=== PATIENT | male | born 2000 | race African-American/Black ===

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

== ENCOUNTER 2020-01-11 22:36 | Emergency (ER) | payer OTHER ==
[~2020-01-11] VITALS: Ht 188 cm; Wt 130.9 kg
[~2020-01-11 22:36] MED LIST changes: +CYCL10TA2 PO; +NAPR-514 PO
[2020-01-11 22:42] VITALS: BP 151/67
[2020-01-11] MEDS ORDERED: TRAM-48 PO (23:10)
--- NOTE | 2020-01-11 23:11 | PHYS DOC ---
Past Medical History Past Medical History: No Pertinent History Additional Past Medical Histor: eczema Past Surgical History: No Surgical History Smoking Status: Never Smoker Alcohol Use: None Drug Use: None General Adult EDM: Chief Complaint: LOWER EXT PAIN HPI: HPI: Patient is a 19 year old male with no past medical history currently on no medications presents for evaluation of bilateral shins after an accident at work. Patient injured bilateral shins on a metal bar while working at [employer]. Patient has 5 out of 10 pain located bilateral merida. Is associated swelling bilateral left greater than right. Patient is able to ambulate and bear weight on lower extremities. There are no other injuries noted. Review of Systems: Review of Systems: Constitutional: Denies fever or chills. [] Eyes: Denies change in visual acuity. [] HENT: Denies nasal congestion or sore throat. [] Respiratory: Denies cough or shortness of breath. [] Cardiovascular: Denies chest pain or edema. [] GI: Denies abdominal pain, nausea, vomiting, bloody stools or diarrhea. [] : Denies dysuria. [] Musculoskeletal: Positive bilateral extremity pain Integument: Denies rash. [Positive contusion positive swelling] Neurologic: Denies headache, focal weakness or sensory changes. [] Endocrine: Denies polyuria or polydipsia. [] Lymphatic: Denies swollen glands. [] Psychiatric: Denies depression or anxiety. [] Heart Score: Risk Factors: Risk Factors: DM, Current or recent (<one month) smoker, HTN, HLP, family history of CAD, obesity. Risk Scores: Score 0 - 3: 2.5% MACE over next 6 weeks - Discharge Home Score 4 - 6: 20.3% MACE over next 6 weeks - Admit for Clinical Observation Score 7 - 10: 72.7% MACE over next 6 weeks - Early Invasive Strategies Allergies: Allergies: Allergies Coded Allergies Type Severity Reaction Last Updated Verified No Known Drug Allergies 05/01/14 No Physical Exam: PE: Constitutional: Well developed, well nourished, no acute distress, non-toxic appearance. [] HENT: Normocephalic, atraumatic, bilateral external ears normal, oropharynx mois t, no oral exudates, nose normal. [] Eyes: PERRLA, EOMI, conjunctiva normal, no discharge. [] Neck: Normal range of motion, no tenderness, supple, no stridor. [] Cardiovascular:Heart rate regular rhythm, no murmur [] Lungs & Thorax: Bilateral breath sounds clear to auscultation [] Abdomen: Bowel sounds normal, soft, no tenderness, no masses, no pulsatile masses. [] Skin: Warm, dry, no erythema, no rash. [] Back: No tenderness, no CVA tenderness. [] Extremities: Tenderness anterior shins bilateral. Bilateral abrasions bilateral swelling left greater than right no active bleeding Neurologic: Alert and oriented X 3, normal motor function, normal sensory function, no focal deficits noted. [] Psychologic: Affect normal, judgement normal, mood normal. [] Current Patient Data: Vital Signs: Vital Signs Date Time Temp Pulse Resp B/P (MAP) Pulse Ox O2 Delivery O2 Flow Rate FiO2 01/11/20 22:48 97.2 83 151/67 (95) 100 97.2 01/11/20 22:42 18 Room Air EKG: EKG: [] Radiology/Procedures: Radiology/Procedures: [] Course & Med Decision Making: Course & Med Decision Making Pertinent Labs and Imaging studies reviewed. (See chart for details) [] Based upon history of present illness and physical exam no emergent radiologic imaging ordered. Patient is able to ambulate and bear weight I do not suspect a fracture dislocation of patient's bilateral tib-fib's. Patient instructed to take [id number] Tylenol or ibuprofen as needed. Will prescribe patient Ultram for breakthrough pain. Patient instructed to rest ice elevate. Patient follow-up with Workmen's Comp. and ordered to be cleared to return to work. Patient will be given a work excuse for 2 days to use if needed. Dragon Disclaimer: Vignesh Disclaimer: This electronic medical record was generated, in whole or in part, using a voice recognition dictation system. Departure Departure Impression: Primary Impression: Contusion of lower leg, left Additional Impression: Contusion of lower leg, right Disposition: 01 HOME SELF CARE/HOMELESS Condition: STABLE Referrals: NO PCP (PCP) Patient Instructions: Contusion Scripts Tramadol Hcl (ULTRAM) 50 Mg Tablet 50 MG PO Q6HRS PRN for PAIN, #20 TAB 0 Refills Prov: IGLESIA YODER I DO 01/11/20 IGLESIA YODER I DO Jan 11, 2020 23:10
== END 2020-01-11 23:17 | disposition home or self-care (01) ==
LOC: ER 23:02
DX: S80.12XA Contusion of left lower leg, initial encounter (principal); S80.11XA Contusion of right lower leg, initial encounter; W01.198A Fall on same level from slipping, tripping and stumbling with subsequent striking against other object, initial encounter; Y93.89 Activity, other specified; Y92.69 Other specified industrial and construction area as the place of occurrence of the external cause; Y99.0 Civilian activity done for income or pay
CPT/HCPCS: 99283